=== PATIENT | male | born 1945 | race American Indian/Alaskan Native ===

== ENCOUNTER 2021-04-09 07:34 | Day surgery (SDC) | payer MEDICARE, OTHER ==
[2021-04-09] MEDS ORDERED: LACTATED RINGERS 1,000 ML ONE (09:02)
[2021-04-09] MEDS ORDERED: MAGNESIUM OXIDE 400 MG TAB PO NR (09:08)
[2021-04-09] MEDS ORDERED: HYDROmorphone 1 MG/1 ML INJ IV PRN ×2 (09:08)
[2021-04-09] MEDS ORDERED: ONDANSETRON 4 MG/2 ML INJ IV PRN (09:08)
[2021-04-09] MEDS ORDERED: ACETAMINOPHEN 325 MG TAB PO NR (09:08)
--- NOTE | 2021-04-09 09:09 | Anesthesia Day of Surgery ---
Anesthesia Day of Surgery - Day of Surgery Patient Examined: Yes Patient H&P Reviewed: Yes Patient is NPO: Yes
--- NOTE | 2021-04-09 09:10 | Anesthesia Consultation ---
Anesthesia Consult and Med Hx Date of service: 04/09/21 - Airway Anesthetic Teeth Evaluation: Dentures, Edentulous ROM Head & Neck: Adequate Mental/Hyoid Distance: Adequate Mallampati Class: Class II Intubation Access Assessment: Good - Pre-Operative Health Status ASA Pre-Surgery Classification: ASA3 Proposed Anesthetic Plan: General - Pulmonary Hx Smoking: Yes (STOPPED X 6 MONTHS,1/2 PPD FOR OVER 20 YRS) Hx Respiratory Symptoms: No (Had lung mass s/p chemo) Hx Sleep Apnea: No (RE PRE SCREEN HIGH RISK) - Cardiovascular System Hx Hypertension: Yes (X 4 YRS) - Central Nervous System Hx Psychiatric Problems: No - Gastrointestinal Hx Gastroesophageal Reflux Disease: No - Hematic Hx Anemia: No Hx Sickle Cell Disease: No - Other Systems Hx Cancer: Yes
[2021-04-09] MEDS ORDERED: ceFAZolin/Water 2 GM/20 ML 2 GM/20 ML SYRINGE IV ONE ×2 (09:13→09:15)
[2021-04-09] MEDS ORDERED: HYDROmorphone 1 MG/1 ML INJ ONE (09:53)
[2021-04-09] MEDS ORDERED: propofoL 200 MG/20 ML VIAL IV ONE (09:53)
[2021-04-09] MEDS ORDERED: LIDOCAINE MPF (2%) 20 MG/1 ML VIAL 5 ML ONE (09:53)
[2021-04-09] MEDS ORDERED: dexAMETHasone 20 MG/5 ML VIAL ONE (09:53)
[2021-04-09] MEDS ORDERED: ONDANSETRON 4 MG/2 ML INJ ONE (09:53)
[2021-04-09] MEDS ORDERED: CELECOXIB 200 MG CAP PO NR (10:00)
[2021-04-09] MEDS ORDERED: LACTATED RINGERS 1,000 ML IV SCH (10:00)
[2021-04-09] MEDS ORDERED: MIDAZOLAM 2 MG/2 ML INJ IV NR (10:00)
--- NOTE | 2021-04-09 11:43 | Short Stay Summary ---
Short Stay Documentation Date of service: 04/09/21 - History H&P: obtained from office - Allergies and Medications Current Medications: Allergies No Known Allergies Allergy (Verified 04/03/21 12:21) Home Medications Medication Instructions Recorded Confirmed Last Taken Type Aspirin [Collier Aspirin EC] 81 mg PO DAILY 04/03/21 04/03/21 Unknown History Glimepiride [Amaryl] 4 mg PO QAM 04/03/21 04/03/21 Unknown History Losartan [Cozaar] 50 mg PO QDAY 04/03/21 04/03/21 Unknown History Metformin HCl [metFORMIN] 1,000 mg PO BID 04/03/21 04/03/21 Unknown History Rosuvastatin Calcium [Crestor] 20 mg PO DAILY 04/03/21 04/03/21 Unknown History Sitagliptin Phosphate [Januvia] 100 mg PO DAILY 04/03/21 04/03/21 Unknown History hydroCHLOROthiazide [Hctz] 12.5 mg PO QDAY 04/03/21 04/03/21 Unknown History Active Medications Acetaminophen (Acetaminophen 325 Mg Tab) 650 mg PO ONCE NR Stop: 04/09/21 20:00 Last Admin: 04/09/21 09:47 Dose: 650 mg Celecoxib (Celecoxib 200 Mg Cap) 200 mg PO PREOP NR Stop: 04/09/21 12:00 Last Admin: 04/09/21 09:47 Dose: 200 mg Hydromorphone HCl (Hydromorphone 1 Mg/1 Ml Inj) 0.25 mg IV Q10MIN PRN PRN Reason: Pain, Moderate (4-6) Stop: 04/09/21 20:00 Hydromorphone HCl (Hydromorphone 1 Mg/1 Ml Inj) 0.5 mg IV Q10MIN PRN PRN Reason: Pain , Severe (7-10) Stop: 04/09/21 20:00 Lactated Ringer's (Lactated Ringers) 1,000 mls @ 100 mls/hr IV DIRECT TETO Last Admin: 04/09/21 09:00 Dose: 100 mls/hr Midazolam HCl (Midazolam 2 Mg/2 Ml Inj) 2 mg IV PREOP NR Stop: 04/09/21 23:59 - Brief post op/procedure progress note Date of procedure: 04/09/21 Pre-op diagnosis: phimosis Post-op diagnosis: same Procedure: circ Anesthesia: GETA Surgeon: JERED RUELAS Estimated blood loss: minimal Pathology: list (foreskin) Specimen disposition: to lab Condition: stable - Hospital course Hospital course: norco on chart - Disposition Condition at discharge: Stable Disposition: 01 HOME / SELF CARE / HOMELESS Short Stay Discharge Plan Follow up with: JOSUÉ OWUSU MD [Primary Care Provider] - 7 Days
--- NOTE | 2021-04-09 12:04 | Operative Report ---
DATE OF SURGERY: 04/09/2021 PREOPERATIVE DIAGNOSIS: Phimosis. POSTOPERATIVE DIAGNOSIS: Phimosis. PROCEDURE: Circumcision. SURGEON: Dusty Meredith MD ANESTHESIA: General. ESTIMATED BLOOD LOSS: Minimal. FLUIDS: Crystalloid. COMPLICATIONS: No complications. INDICATIONS: This patient is a 76-year-old gentleman seen in the office for tight foreskin, unable to retract for quite some time. The patient was nonspecific. Exam tight, unable to retract in the office, needs circumcision. Medical clearance by Dr. Aguila. Risks, benefits, complications were explained. The patient agreed to proceed with surgical intervention. DESCRIPTION OF PROCEDURE: The patient was taken to the operative suite, placed in a supine position. After adequate general anesthesia, he was prepped and draped in a sterile fashion. I was able to retract the foreskin with some cracking for prep. It was then marked at the level of the coronal ridge. Dorsal and ventral slits were made. Foreskin was circumferentially removed and sent for routine pathologic evaluation. Adequate hemostasis was achieved with the Bovie. Proximal and distal shaft skin was reapproximated and closed with a 2-0 chromic in an interrupted fashion. Xeroform gauze was placed around the incision. Naldo and Coban dressing. The patient tolerated the procedure well and was extubated and taken to recovery room. He will go home on [place]. He was given Ancef during the procedure. TID: [id number] RECEIPT: [id number] CONCEPCIÓN/FILIPE
[2021-04-09 17:43] VITALS: BP 123/72
--- NOTE | 2021-04-09 17:49 | Post Anesthesia Evaluation ---
- Post Anesthesia Evaluation Patient Participated: Yes Airway Patent: Yes Stable Respiratory Function: Yes Nausea/Vomiting: No Temp > 96.8F: Yes Pain Manageable: Yes Adequeate Hydration: Yes Anesthesia Complications: No Block Receding Appropriately: Not Applicable Patient on Ventilator: No
== END 2021-04-09 14:05 | disposition home or self-care (01) ==
LOC: OR 07:34
PROVIDERS: ATTEND Urology
DX: N47.1 Phimosis (principal); I10 Essential (primary) hypertension; E78.00 Pure hypercholesterolemia, unspecified; Z87.891 Personal history of nicotine dependence; Z79.82 Long term (current) use of aspirin; Z79.84 Long term (current) use of oral hypoglycemic drugs; Z79.899 Other long term (current) drug therapy; Z98.890 Other specified postprocedural states; Z20.822 Contact with and (suspected) exposure to COVID-19
CPT/HCPCS: 54161; 82962; 88304; J0690; J1100; J1170; J2405; J2704; J3490; J7120; U0003; J2250